=== PATIENT | female | born 1985 | race Caucasian/White ===

== ENCOUNTER 2023-10-23 22:47 | Observation (INO) | payer BC, SELFPAY ==
[2023-10-23 21:14] VITALS: BP 116/82
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
[2023-10-23 22:38] VITALS: BP 113/74
[2023-10-23 23:00] VITALS: BP 119/87; BMI 24.8
== END 2023-10-24 03:10 | disposition home or self-care (01) ==
LOC: LDRP 22:47
PROVIDERS: ADMITTING PHYSICIAN Obstetrics & Gynecology; EMERGENCY PHYSICIAN Student in an Organized Health Care Education/Training Program
DX: Z04.1 Encounter for examination and observation following transport accident (principal); R10.9 Unspecified abdominal pain; Z3A.35 35 weeks gestation of pregnancy
CPT/HCPCS: 99285; G0378